=== PATIENT | female | born 1955 | race Caucasian/White ===

== ENCOUNTER 2017-02-17 04:36 | Emergency (ER) | payer OTHER ==
[~2017-02-17 04:36] MED LIST: ALKA-SELTZE4 PO; CAT1; CAT2 PO; D 5000 PO; D.O.S.100 MG PO; HAIR/SKIN/NAILS VIT PO; HYGROTON 25 MG25 MG PO; LEVAQUIN750 MG PO; NORV5 PO; NOVOLOG SC; PLAVIX PO; RANITIDINE300 MG PO; TRAN200 PO; ZANAFLEX 4 MG TA4 MG PO
[2017-02-17 04:46] LABS: BASOPHILS 0.2 %; BASOPHILS ABSOLUTE 0.02 10/3/uL (0.0-0.16); EOSINOPHILS 5.5 %; EOSINOPHILS ABSOLUTE 0.61 10/3/uL (0.0-0.53); HEMOGLOBIN 14.6 g/dL (12.0-16.0); IMMATURE GRANULOCYTES 0.3 %; IMMATURE GRANULOCYTES ABSOLUTE 0.03 10/3/uL (0.0-0.11); LYMPHOCYTES 15.2 %; LYMPHOCYTES ABSOLUTE 1.69 10/3/uL (0.67-4.30); MEAN CORPUS HGB CONC 33.8 g/dL (32.0-36.0); MEAN CORPUSCULAR HEMOGLOB 31.2 pg (26.0-34.0); MEAN CORPUSCULAR VOLUME 92.3 fL (80-100); MEAN PLATELET VOLUME 11.3 fL (9.2-13.0); MONOCYTES 11.2 %; MONOCYTES ABSOLUTE 1.25 10/3/uL (0.21-1.20); NEUTROPHILS 67.6 %; NEUTROPHILS ABSOLUTE 7.52 10/3/uL (2.02-8.40); PLATELET COUNT 240 10/3/uL (150-400); RBC DISTRIBUTION WIDTH 13.8 % (12.0-16.0); RED CELL COUNT 4.68 10/6/uL (4.0-5.6)
[2017-02-17 04:51] LABS: ER CBC TAT 0 Hrs 13 Mins; WHITE BLOOD CELLS 11.1 10/3/uL (4.5-10.5)
[2017-02-17 04:52] LABS: HEMATOCRIT 43.2 % (36.0-48.0); MANUAL DIFF NO %
[2017-02-17 04:59] LABS: CALCIUM, SERUM 9.2 MG/DL (8.5-10.4); CHLORIDE, SERUM 102 MMOL/L (96-112); CO2 (CARBON DIOXIDE) 27 MMOL/L (24-34); CREATININE 2.11 MG/DL (0.55-1.02); GFR AFRICAN AMERICAN 28 ML/MIN (>=60); GFR NON AFRICAN AMERICAN 24 ML/MIN (>=60); GLUCOSE, SERUM 119 MG/DL (60-99); POTASSIUM, SERUM 4.2 MMOL/L (3.5-5.3); SODIUM, SERUM 141 MMOL/L (135-148)
[2017-02-17 05:00] LABS: BUN (BLOOD UREA NITROGEN) 27 MG/DL (6-23)
== END 2017-02-17 07:04 | disposition home or self-care (01) ==
LOC: ER 04:36
PROVIDERS: Nurse Practitioner
DX: K04.7 Periapical abscess without sinus (principal); K05.6 Periodontal disease, unspecified; I12.9 Hypertensive chronic kidney disease with stage 1 through stage 4 chronic kidney disease, or unspecified chronic kidney disease; N18.9 Chronic kidney disease, unspecified; J44.9 Chronic obstructive pulmonary disease, unspecified; K21.9 Gastro-esophageal reflux disease without esophagitis; F32.9 Major depressive disorder, single episode, unspecified; F41.9 Anxiety disorder, unspecified; Z86.73 Personal history of transient ischemic attack (TIA), and cerebral infarction without residual deficits; Z90.710 Acquired absence of both cervix and uterus; Z88.0 Allergy status to penicillin; Z88.1 Allergy status to other antibiotic agents; Z88.8 Allergy status to other drugs, medicaments and biological substances; Z79.82 Long term (current) use of aspirin; Z79.4 Long term (current) use of insulin; Z79.899 Other long term (current) drug therapy
CPT/HCPCS: 70490; 80048; 85025; 87040; 96374; 96375; 96376; 99285; A9270-GY; J1170; J2550